=== PATIENT | female | born 1990 | race Two or more races ===

== ENCOUNTER 2018-09-04 18:21 | Inpatient (IN) | payer OTHER ==
[~2018-09-04] VITALS: Ht 160 cm; Wt 72.6 kg
== END 2018-09-06 12:32 | disposition home or self-care (01) | DRG 807 ==
LOC: LDR 18:21 → OB/GYN 18:21
PROC: 10E0XZZ Delivery of Products of Conception, External Approach (ICD-10-PCS; principal; 2018-09-04)
PROC: 4A1HXCZ Monitoring of Products of Conception, Cardiac Rate, External Approach (ICD-10-PCS; 2018-09-04)
PROC: 4A033R1 Measurement of Arterial Saturation, Peripheral, Percutaneous Approach (ICD-10-PCS; 2018-09-04)
DX: O42.02 Full-term premature rupture of membranes, onset of labor within 24 hours of rupture (principal); Z37.0 Single live birth; Z3A.38 38 weeks gestation of pregnancy

== ENCOUNTER 2024-09-07 08:33 | Day surgery (SDC) | payer OTHER ==
[2024-09-06 09:59] LABS: HEMATOCRIT 32.4 % (36.0-45.00); HEMOGLOBIN 10.6 g/dL (12.0-15.00); MEAN CELL VOLUME 78.2 fL (80.00-100.00); MEAN CORPUSCULAR HEMOGLOBIN 25.5 pg (27.00-32.0); MEAN CORPUSCULAR HGB CONC 32.6 g/dl (32.0-36.0); PLATELET COUNT 370 K/uL (150-450); RED BLOOD COUNT 4.14 M/uL (4.00-6.00)
[2024-09-06 10:00] LABS: RED CELL DISTRIBUTION WIDTH 19.9 % (11.5-14.5)
[2024-09-06 10:01] LABS: PH,URINE 5.5 (5.0-8.0); URINE APPEARANCE Clear; URINE BILIRRUBIN Negative (NEGATIVE); URINE BLOOD Negative; URINE COLOR Yellow; URINE GLUCOSE Negative (NEGATIVE); URINE KETONE Negative (NEGATIVE); URINE LEUKOCYTE Trace; URINE NITRATE Negative; URINE PROTEIN Negative (NEGATIVE); URINE UROBILINOGEN 0.2 E.U./dl
[2024-09-06 10:06] LABS: URINE BACTERIA 166.3 uL (0.0-1933); URINE EPITHELIAL CELLS 7.1 uL (0.0-38.8); URINE RBC 2.7 uL (0.0-20.8); URINE WBC 9.7 uL (0.0-23.2)
[2024-09-06 10:18] LABS: URINE CAST 0.15 uL (0.0-1.40)
[2024-09-06 10:21] LABS: INR 1.02; PARTIAL THROMBOPLASTIN TIME 25.5 SECONDS (22.0-34.0); PROTHROMBIN TIME 11.1 SECONDS (9.0-11.5)
[2024-09-06 10:48] LABS: ALBUMIN 3.6 gm/dL (3.4-5.0); BILIRUBIN TOTAL 0.58 mg/dL (0.3-1.2); CALCIUM 9.4 mg/dL (8.5-10.1); CREATININE SERUM 0.61 mg/dL (0.55-1.02); GFR 113.66; GLOBULINA 4.1 G/DL (2.4-3.5); POTASSIUM 4.55 mEq/L (3.5-5.1); TOTAL PROTEIN 7.7 gm/dL (6.4-8.2)
[2024-09-07] MEDS ORDERED: POVIDONE-IODINE 118 ML BOTT TOP ONE (11:15)
[2024-09-07] MEDS ORDERED: CEFOXITIN SODIUM 2,000 MG VIAL IV ONE (11:15)
[2024-09-07] MEDS ORDERED: MORPHINE SULFATE 4 MG/ML VIAL IV PRN (11:30)
[2024-09-07] MEDS ORDERED: PROMETHAZINE HCL 50 MG/ML AMPUL IM ONE (11:30)
== END 2024-09-07 15:50 | disposition home or self-care (01) ==
LOC: CIR.AMB 08:33
PROVIDERS: ATTEND Obstetrics & Gynecology Gynecology
DX: O02.1 Missed abortion (principal); O72.2 Delayed and secondary postpartum hemorrhage

== ENCOUNTER 2025-04-28 23:47 | Emergency (ER) | payer OTHER ==
[~2025-04-28] VITALS: Ht 160 cm; Wt 65.8 kg
[2025-04-29] MEDS ORDERED: LABETALOL HCL100 MG PO (00:09)
[2025-04-29] MEDS ORDERED: 0.9 % SODIUM CHLORIDE 1,000 ML IV STA (00:59)
[2025-04-29] MEDS ORDERED: MORPHINE SULFATE 4 MG/ML VIAL IV STA (01:00)
[2025-04-29 01:43] LABS: BASO % 0.3 % (0.1-1.2); EOS # 0.29 (0.04-0.54); EOS % 2.6 % (0.7-7.0); HEMATOCRIT 28.4 % (34.1-44.9); HEMOGLOBIN 9.6 g/dL (11.2-15.7); LYMPH # 1.67 (1.18-3.74); LYMPH % 15.1 % (19.3-53.1); MEAN CORPUSCULAR HEMOGLOBIN 28.5 pg (25.6-32.2); MONO # 0.73 (0.24-0.82); MONO % 6.6 % (4.7-12.5); NEUT # 8.31 (1.56-6.13); NEUT % 74.9 % (34.0-71.1); PLATELET COUNT 305 K/uL (163-369); RED BLOOD COUNT 3.37 M/uL (3.93-5.22); RED CELL DISTRIBUTION WIDTH 15.1 % (11.6-14.4)
[2025-04-29 02:44] LABS: ALBUMIN 2.9 gm/dL (3.4-5.0); BILIRUBIN TOTAL 0.37 mg/dL (0.3-1.2); CALCIUM 9.4 mg/dL (8.5-10.1); CREATININE SERUM 0.67 mg/dL (0.55-1.02); GFR 101.36; GLOBULINA 3.7 G/DL (2.4-3.5); POTASSIUM 3.71 mEq/L (3.5-5.1); TOTAL PROTEIN 6.6 gm/dL (6.4-8.2)
[2025-04-29 04:43] LABS: PH,URINE 6.5 (5.0-8.0); URINE APPEARANCE Clear; URINE BILIRRUBIN Negative (NEGATIVE); URINE BLOOD Negative; URINE COLOR Yellow; URINE GLUCOSE Negative (NEGATIVE); URINE KETONE Trace (NEGATIVE); URINE LEUKOCYTE Small; URINE NITRATE Positive; URINE PROTEIN Negative (NEGATIVE); URINE UROBILINOGEN 0.2 E.U./dl
[2025-04-29 04:47] LABS: URINE EPITHELIAL CELLS 9.6 uL (0.0-38.8); URINE RBC 8.9 uL (0.0-20.8); URINE WBC 252.1 uL (0.0-23.2)
[2025-04-29 05:15] LABS: URINE BACTERIA > 9821.5 uL (0.0-1933); URINE CAST 0.73 uL (0.0-1.40)
== END 2025-04-29 04:50 | disposition home or self-care (01) ==
LOC: ER 23:47
DX: O26.892 Other specified pregnancy related conditions, second trimester (principal); R10.2 Pelvic and perineal pain; Z3A.19 19 weeks gestation of pregnancy

== ENCOUNTER 2025-08-15 07:31 | Emergency (ER) | payer OTHER ==
[~2025-08-15] VITALS: Ht 160 cm; Wt 71.2 kg
[~2025-08-15 07:31] MED LIST: LABETALOL HCL100 MG PO
[2025-08-15] MEDS ORDERED: ACETAMINOPHEN 325 MG TABLET PO ONE (08:00)
[2025-08-15] MEDS ORDERED: ACETAMINOPHEN 500 MG GEL..CAP PO ONE (08:00)
[2025-08-16] MEDS ORDERED: PRENATE DHA SO1 EAC1 (20:09)
[2025-08-16] MEDS ORDERED: AMOX-CLAV 875-1 EACH PO (23:55)
[2025-08-16] MEDS ORDERED: TETRACAINE HCL OP (23:55)
[2025-08-16] MEDS ORDERED: CIPROFLOX-DEXA7.5 ML OT (23:55)
== END 2025-08-15 11:14 | disposition home or self-care (01) ==
LOC: ER 07:31
DX: H60.8X1 Other otitis externa, right ear (principal); I10 Essential (primary) hypertension

== ENCOUNTER 2025-08-16 19:00 | Emergency (ER) | payer OTHER ==
[~2025-08-16] VITALS: Ht 160 cm; Wt 71.2 kg
[2025-08-16] MEDS ORDERED: PRENATE DHA SO1 EAC1 (20:09)
[2025-08-16] MEDS ORDERED: RINGERS SOLUTION,LACTATED 1,000 ML IV ONE (20:30)
[2025-08-16] MEDS ORDERED: FAMOTIDINE/PF 20 MG/2 ML VIAL IV ONE (20:30)
[2025-08-16] MEDS ORDERED: TETRACAINE HCL 20 DR/ML DROPS OP ONE (20:45)
[2025-08-16] MEDS ORDERED: FAMOTIDINE/PF 20 MG/2 ML VIAL ONE (21:56)
[2025-08-16 22:18] LABS: ERYTHROCYTE SEDIMENTATION RATE 20 mm/hr (0-20)
[2025-08-16 22:22] LABS: ALT/SGPT 16.0 U/L (12-78); AST/SGOT 19.0 U/L (15-37); BILIRUBIN TOTAL 0.39 mg/dL (0.3-1.2); BUN CREA RATIO 8.0 (7.0-25.0); GFR 75.99; GLOBULINA 4.4 G/DL (2.4-3.5)
[2025-08-16 22:26] LABS: CREATININE SERUM 0.86 mg/dL (0.55-1.02); OSMOLALITY SERUM 275.0 MOSM/KG (275-295)
[2025-08-16 22:27] LABS: GLUCOSE FASTING 217.0 mg/dL (65-100)
[2025-08-16 22:30] LABS: BASO % 0.1 % (0.1-1.2); EOS # 0.01 (0.04-0.54); EOS % 0.1 % (0.7-7.0); LYMPH # 0.90 (1.18-3.74); LYMPH % 6.4 % (19.3-53.1); MEAN PLATELET VOLUME 9.20 fl (9.4-12.4); MONO # 0.15 (0.24-0.82); MONO % 1.1 % (4.7-12.5); NEUT # 12.78 (1.56-6.13); NEUT % 91.4 % (34.0-71.1); RED CELL DISTRIBUTION WIDTH 14.5 % (11.6-14.4)
[2025-08-16 22:40] LABS: URINE APPEARANCE Clear; URINE BILIRRUBIN Negative (NEGATIVE); URINE BLOOD Negative; URINE COLOR Yellow; URINE KETONE 15 (NEGATIVE); URINE LEUKOCYTE Trace; URINE NITRATE Negative; URINE PROTEIN Negative (NEGATIVE); URINE UROBILINOGEN 0.2 E.U./dl
[2025-08-16 22:44] LABS: URINE BACTERIA 125.9 uL (0.0-1933); URINE EPITHELIAL CELLS 26.1 uL (0.0-38.8); URINE RBC 2.4 uL (0.0-20.8); URINE WBC 15.2 uL (0.0-23.2)
[2025-08-16 22:59] LABS: URINE CAST 0.00 uL (0.0-1.40); URINE GLUCOSE 250 MG/DL (NEGATIVE)
[2025-08-16] MEDS ORDERED: TETRACAINE HCL OP (23:55)
[2025-08-16] MEDS ORDERED: AMOX-CLAV 875-1 EACH PO (23:55)
[2025-08-16] MEDS ORDERED: CIPROFLOX-DEXA7.5 ML OT (23:55)
[2025-08-17 01:10] VITALS: BP 135/72; O2SAT 97
== END 2025-08-17 01:11 | disposition home or self-care (01) ==
LOC: ER 19:00
PROVIDERS: Student in an Organized Health Care Education/Training Program
DX: O26.893 Other specified pregnancy related conditions, third trimester (principal); H60.8X1 Other otitis externa, right ear; H66.91 Otitis media, unspecified, right ear; Z3A.33 33 weeks gestation of pregnancy

== ENCOUNTER 2025-08-22 13:26 | Outpatient (CLI) | payer OTHER ==
[~2025-08-22 13:26] MED LIST changes: +AMOX-CLAV 875-1 EACH PO; +CIPROFLOX-DEXA7.5 ML OT; +PRENATE DHA SO1 EAC1; +TETRACAINE HCL OP
== END 2025-08-22 14:26 | disposition home or self-care (01) ==
LOC: NST 13:26
PROVIDERS: ATTEND Obstetrics & Gynecology Maternal & Fetal Medicine
DX: Z34.83 Encounter for supervision of other normal pregnancy, third trimester (principal)

== ENCOUNTER 2025-08-31 12:47 | Outpatient (CLI) | payer OTHER | END 2025-08-31 13:39 | disposition home or self-care (01) | LOC: NST 12:47 | PROVIDERS: ATTEND Obstetrics & Gynecology Gynecology | DX: Z34.83 Encounter for supervision of other normal pregnancy, third trimester (principal) ==

== ENCOUNTER 2025-09-04 09:40 | Outpatient (CLI) | payer OTHER | END 2025-09-04 10:30 | disposition home or self-care (01) | LOC: NST 09:40 | PROVIDERS: ATTEND Obstetrics & Gynecology Gynecology | DX: Z34.83 Encounter for supervision of other normal pregnancy, third trimester (principal) ==

== ENCOUNTER 2025-09-06 22:01 | Outpatient (CLI) | payer OTHER ==
[~2025-09-06] VITALS: Ht 160 cm; Wt 73.9 kg
[2025-09-06 21:55] VITALS: BP 180/106
[2025-09-06] MEDS ORDERED: LABETALOL HCL 300 MG TABLET PO SCH (22:14)
[2025-09-06] MEDS ORDERED: hydrALAZINE HCL 20 MG VIAL IV STA (22:15)
[2025-09-06] MEDS ORDERED: RINGERS SOLUTION,LACTATED 1,000 ML IV SCH (23:00)
[2025-09-06 23:08] LABS: BASO % 0.4 % (0.1-1.2); EOS # 0.41 (0.04-0.54); EOS % 5.0 % (0.7-7.0); LYMPH # 2.12 (1.18-3.74); LYMPH % 25.9 % (19.3-53.1); MEAN PLATELET VOLUME 10.40 fl (9.4-12.4); MONO # 0.65 (0.24-0.82); MONO % 8.0 % (4.7-12.5); NEUT # 4.92 (1.56-6.13); NEUT % 60.2 % (34.0-71.1); RED CELL DISTRIBUTION WIDTH 14.7 % (11.6-14.4)
[2025-09-06 23:10] LABS: URINE APPEARANCE Clear; URINE BILIRRUBIN Negative (NEGATIVE); URINE BLOOD Negative; URINE COLOR Yellow; URINE GLUCOSE Negative (NEGATIVE); URINE KETONE Negative (NEGATIVE); URINE LEUKOCYTE Negative; URINE NITRATE Negative; URINE PROTEIN Negative (NEGATIVE); URINE UROBILINOGEN 0.2 E.U./dl
[2025-09-06 23:15] LABS: URINE BACTERIA 87.5 uL (0.0-1933); URINE EPITHELIAL CELLS 3.6 uL (0.0-38.8); URINE WBC 1.8 uL (0.0-23.2)
[2025-09-06 23:18] LABS: URINE CAST 0.29 uL (0.0-1.40); URINE RBC 1.1 uL (0.0-20.8)
[2025-09-06 23:32] LABS: INR < 0.93
[2025-09-06 23:38] LABS: BUN CREA RATIO 11.0 (7.0-25.0); CREATININE SERUM 0.87 mg/dL (0.55-1.02); GFR 74.98; GLUCOSE FASTING 76.0 mg/dL (65-100); OSMOLALITY SERUM 283.0 MOSM/KG (275-295)
[2025-09-06] MEDS ORDERED: TRANDATE300 MG PO (23:45)
[2025-09-06] MEDS ORDERED: VAZALORE81 MG PO (23:46)
[2025-09-07 00:06] VITALS: BP 124/76
[2025-09-07 03:25] VITALS: BP 118/73
[2025-09-07 06:26] VITALS: BP 113/69; O2SAT 96
[2025-09-07 09:00] VITALS: BP 137/84
[2025-09-07 09:12] VITALS: BP 137/84
== END 2025-09-07 09:31 | disposition home or self-care (01) ==
LOC: OBS/DEL 22:01
PROVIDERS: ATTEND Obstetrics & Gynecology
DX: O26.893 Other specified pregnancy related conditions, third trimester (principal); Z3A.37 37 weeks gestation of pregnancy

== ENCOUNTER 2025-09-11 12:06 | Inpatient (IN) | payer OTHER ==
[2025-09-11] VITALS (11 sets, daily range): BP systolic 130–164; BP diastolic 80–98
[~2025-09-11] VITALS: Ht 160 cm; Wt 73.9 kg
[~2025-09-11 12:06] MED LIST changes: +TRANDATE300 MG PO; +VAZALORE81 MG PO
[2025-09-11] MEDS ORDERED: LABETALOL HCL200 MG PO (12:57)
[2025-09-11] MEDS ORDERED: MORPHINE SULFATE 4 MG/ML CARTRIDGE IV PRN (13:00)
[2025-09-11] MEDS ORDERED: OXYTOCIN 500 ML IV ONE (13:00)
[2025-09-11 13:20] LABS: BASO % 0.4 % (0.1-1.2); EOS # 0.25 (0.04-0.54); EOS % 3.6 % (0.7-7.0); LYMPH # 1.52 (1.18-3.74); LYMPH % 21.8 % (19.3-53.1); MEAN PLATELET VOLUME 10.00 fl (9.4-12.4); MONO # 0.58 (0.24-0.82); MONO % 8.3 % (4.7-12.5); NEUT # 4.57 (1.56-6.13); NEUT % 65.5 % (34.0-71.1); RED CELL DISTRIBUTION WIDTH 14.6 % (11.6-14.4)
[2025-09-11 13:24] LABS: URINE APPEARANCE Clear; URINE BILIRRUBIN Negative (NEGATIVE); URINE BLOOD Negative; URINE COLOR Yellow; URINE GLUCOSE Negative (NEGATIVE); URINE KETONE Negative (NEGATIVE); URINE LEUKOCYTE Negative; URINE NITRATE Negative; URINE PROTEIN Negative (NEGATIVE); URINE UROBILINOGEN 0.2 E.U./dl
[2025-09-11 13:25] LABS: URINE BACTERIA 40.7 uL (0.0-1933); URINE EPITHELIAL CELLS 6.4 uL (0.0-38.8); URINE WBC 3.5 uL (0.0-23.2)
[2025-09-11 13:26] LABS: URINE CAST 0.14 uL (0.0-1.40); URINE RBC 1.3 uL (0.0-20.8)
[2025-09-11 13:40] LABS: INR < 0.93
[2025-09-11] MEDS ORDERED: LABETALOL HCL 200 MG TABLET PO SCH (14:17)
[2025-09-11 14:36] LABS: ALT/SGPT 23.0 U/L (12-78); AST/SGOT 26.0 U/L (15-37); BILIRUBIN TOTAL 0.43 mg/dL (0.3-1.2); BUN CREA RATIO 16.0 (7.0-25.0); CREATININE SERUM 0.7 mg/dL (0.55-1.02); GFR 96.37; GLOBULINA 3.8 G/DL (2.4-3.5); GLUCOSE FASTING 70.0 mg/dL (65-100); OSMOLALITY SERUM 275.0 MOSM/KG (275-295)
[2025-09-11] MEDS ORDERED: OXYTOCIN 1,000 ML IV SCH (15:45)
[2025-09-11] MEDS ORDERED: MAGNESIUM SULFATE IN WATER 500 ML IV SCH (15:45)
[2025-09-11] MEDS ORDERED: CHLORHEXIDINE GLUCONATE 120 ML BOTTLE TOP SCH (15:45)
[2025-09-11] MEDS ORDERED: ERYTHROMYCIN BASE OPHT 1GM EACH TUBE OP ONE (16:15)
[2025-09-12 00:25] VITALS: BP 130/70
[2025-09-12 04:00] VITALS: BP 135/78
[2025-09-12 06:30] LABS: BASO % 0.5 % (0.1-1.2); EOS # 0.27 (0.04-0.54); EOS % 2.5 % (0.7-7.0); LYMPH # 1.69 (1.18-3.74); LYMPH % 15.6 % (19.3-53.1); MEAN PLATELET VOLUME 10.30 fl (9.4-12.4); MONO # 0.82 (0.24-0.82); MONO % 7.6 % (4.7-12.5); NEUT # 7.94 (1.56-6.13); NEUT % 73.4 % (34.0-71.1); RED CELL DISTRIBUTION WIDTH 14.4 % (11.6-14.4)
[2025-09-12 07:02] LABS: ALT/SGPT 19.0 U/L (12-78); AST/SGOT 27.0 U/L (15-37); BILIRUBIN TOTAL 0.4 mg/dL (0.3-1.2); BUN CREA RATIO 12.0 (7.0-25.0); CREATININE SERUM 0.68 mg/dL (0.55-1.02); GFR 99.65; GLOBULINA 3.4 G/DL (2.4-3.5); GLUCOSE FASTING 100.0 mg/dL (65-100); OSMOLALITY SERUM 276.0 MOSM/KG (275-295)
[2025-09-12 08:25] VITALS: BP 149/92
[2025-09-12 08:26] VITALS: BP 136/80
[2025-09-12] MEDS ORDERED: LABETALOL HCL 300 MG TABLET PO SCH (09:00)
[2025-09-12 13:01] VITALS: BP 130/80; O2SAT 97
[2025-09-12 16:00] VITALS: BP 140/80
[2025-09-13 00:43] VITALS: BP 130/70
[2025-09-13 04:47] VITALS: BP 140/80
[2025-09-13 08:10] VITALS: BP 140/80
== END 2025-09-13 14:36 | disposition home or self-care (01) | DRG 807 ==
LOC: LDR 12:06 → OB/GYN 12:06
PROVIDERS: Obstetrics & Gynecology; ADMIT Obstetrics & Gynecology Gynecology; ATTEND Obstetrics & Gynecology Gynecology
PROC: 10E0XZZ Delivery of Products of Conception, External Approach (ICD-10-PCS; principal; 2025-09-11)
PROC: 4A1HXCZ Monitoring of Products of Conception, Cardiac Rate, External Approach (ICD-10-PCS; 2025-09-11)
DX: O80 Encounter for full-term uncomplicated delivery (principal); Z37.0 Single live birth; Z3A.37 37 weeks gestation of pregnancy

== ENCOUNTER 2025-11-01 06:36 | Day surgery (SDC) | payer OTHER ==
[2025-10-27 13:38] LABS: BASO % 0.7 % (0.1-1.2); EOS # 0.68 (0.04-0.54); EOS % 12.5 % (0.7-7.0); LYMPH # 1.91 (1.18-3.74); LYMPH % 35.1 % (19.3-53.1); MEAN PLATELET VOLUME 9.20 fl (9.4-12.4); MONO # 0.34 (0.24-0.82); MONO % 6.3 % (4.7-12.5); NEUT # 2.46 (1.56-6.13); NEUT % 45.2 % (34.0-71.1); RED CELL DISTRIBUTION WIDTH 14.4 % (11.6-14.4)
[2025-10-27 14:01] LABS: INR 1.04
[2025-10-27 14:39] LABS: ALT/SGPT 87.0 U/L (12-78); AST/SGOT 39.0 U/L (15-37); BILIRUBIN TOTAL 0.49 mg/dL (0.3-1.2); BUN CREA RATIO 23.0 (7.0-25.0); CREATININE SERUM 0.74 mg/dL (0.55-1.02); GFR 90.38; GLOBULINA 3.9 G/DL (2.4-3.5); GLUCOSE FASTING 87.0 mg/dL (65-100); OSMOLALITY SERUM 282.0 MOSM/KG (275-295)
[~2025-11-01 06:36] MED LIST changes: +LABETALOL HCL200 MG PO
[2025-11-01] MEDS ORDERED: POVIDONE-IODINE 118 ML BOTT TOP ONE (11:55)
[2025-11-01] MEDS ORDERED: SUGAMMADEX SODIUM 200 MG/2 ML VIAL IV ONE (13:41)
[2025-11-01] MEDS ORDERED: PROMETHAZINE HCL 50 MG/ML AMPUL IM ONE (14:15)
[2025-11-01] MEDS ORDERED: MORPHINE SULFATE 4 MG/ML VIAL IV PRN (14:15)
== END 2025-11-01 16:10 | disposition home or self-care (01) ==
LOC: CIR.AMB 06:36
PROVIDERS: ATTEND Obstetrics & Gynecology Gynecology
DX: Z30.2 Encounter for sterilization (principal)